=== PATIENT | male | born 2005 | race Caucasian/White ===

== ENCOUNTER 2025-02-13 20:35 | Emergency (ER) | payer OTHER, SELFPAY ==
[2025-02-13] VITALS (7 sets, daily range): BP systolic 111–130; BP diastolic 62–72; PULSE 88–105; RESP 16–20; TEMP 38.9–39.6; O2SAT 95–99; BMI 28.2
--- NOTE | 2025-02-13 21:06 | CRLHL7_ITS ---
For Patients: As a result of the Cures Act, medical imaging exams and procedure reports are released immediately into your electronic medical record. You may view this report before your referring provider. If you have questions, please contact your health care provider. INDICATION: Fever TECHNIQUE: Chest radiograph 2 views COMPARISON: None FINDINGS: The sensitivity and specificity of the exam are moderately limited by the patient`s body habitus. Mediastinum: The mediastinum is normal in appearance. The heart silhouette is normal in size and morphology. Lung: Both lungs are unremarkable in appearance with small lung volumes. No sign of pleural effusion seen. No pneumothorax is identified. Bone and Soft tissue: Unremarkable for age. IMPRESSION: 1. No acute cardiopulmonary disease is seen. Dictated by: Tru Jaramillo MD @ 02/13/2025 21:43:49 (Electronically Signed)
--- NOTE | 2025-02-13 21:06 | ED.GENADULT ---
HPI - General Adult General Date Seen: 02/13/25 Chief complaint: Fever Stated complaint: Fever, Seizures Time Seen by Provider: 02/13/25 20:48 History of Present Illness HPI narrative: Patient is a 19-year-old generally healthy young man with a history of ITP who presents with sudden onset of fever and shaking chills with associated near-syncope, here with his girlfriend for evaluation. They were concerned about possible seizure because of this shaking, but it does not sound like he had seizure activity as he did not have loss of consciousness. He said he could hear his girlfriend talking to him but he was shaking really hard and he said he just felt so poorly he did not even feel like he could respond. He does not have a seizure history. He has developed symptoms of headache, neck pain, sore throat, cough, nausea, he had fleeting left-sided chest pain, this is resolved, body aches, weakness. He has not had any ill contacts or travel. He vapes and smokes cigarettes, drinks occasionally, has history of mushroom use but none for the past year, denies any history of IV drug use. Related Data Allergies Allergy/AdvReac Type Severity Reaction Status Date / Time No Known Drug Allergies Allergy Verified 02/13/25 21:14 Review of Systems Status of ROS: Reports: 10 or more systems reviewed and unremarkable except as noted in History and below [facility] Social History Non-prescribed substance use: marijuana (any form) Exam Narrative: Exam Narrative: Vital signs reviewed In general, alert, nontoxic young man. Head: Normocephalic, atraumatic. Eyes: Sclera clear. Pupils equal and reactive. ENT: Mucous membranes moist. Throat normal. Neck: He does move his neck, complains of pain. Complains of tenderness in the anterior and posterior neck, no adenopathy. Heart: Regular rate and rhythm without murmur. Lungs: Clear. No increased work of breathing, crackles or wheezes. Abdomen: Soft, nondistended. Complains of mild tenderness throughout, no rebound guarding or rigidity. Extremities: Well perfused, pulses intact. No significant edema. Neurologic: Alert, conversant. Speech fluent, face symmetric. Moves all extremities equally. Nurse reported generalized weakness and requiring wheelchair to get him to the room. Skin: Warm, dry well perfused. No rash. Affect: Normal. Const: Vital Signs, click to edit/add: Vital Signs - 24 hr 02/13/25 20:41 02/13/25 21:22 02/13/25 21:42 Temperature 103.2 F H 103 F H Pulse Rate [Pulse Oximeter] Pulse Rate [Right Pulse Oximeter] 94 105 H Respiratory Rate 16 16 Blood Pressure [Le ft Arm] Blood Pressure [Ri ght Upper Arm] 120/68 130/72 Pulse Oximetry 99 95 Oxygen Delivery Me thod Room Air Room Air 02/13/25 22:20 02/13/25 22:23 02/13/25 22:36 Temperature 102.0 F H 102.0 F H 102.0 F H Pulse Rate [Pulse Oximeter] 92 Pulse Rate [Right Pulse Oximeter] Respiratory Rate 20 Blood Pressure [Le ft Arm] 130/72 Blood Pressure [Ri ght Upper Arm] Pulse Oximetry 95 Oxygen Delivery Me thod Room Air 02/13/25 22:47 Temperature Pulse Rate [Pulse Oximeter] Pulse Rate [Right Pulse Oximeter] 88 Respiratory Rate 16 Blood Pressure [Le ft Arm] Blood Pressure [Ri ght Upper Arm] 111/62 Pulse Oximetry 95 Oxygen Delivery Me thod Room Air Course Course ED Course: Patient presents with fairly sudden onset of fever and chills about an hour ago. Unclear at this time whether this represents a viral process or bacterial illness. Swabs for COVID influenza and RSV done at triage as well as as strep swab, but given his broad symptom profile, other considerations would include bacterial pneumonia and meningitis among others. Will give him some fluids, Toradol and Tylenol for fever, Zofran for nausea, reassess after labs and medications. He is feeling better after medications. He tells me after initial evaluation that he has chronic pain in the right side of his neck, he says he has had this for years and his mother and sisters have similar symptoms. He notes that this is a muscle spasm type pain that goes down into his right shoulder blade area as well, he takes ibuprofen for it but that does not really help anymore. He would like something for that. Otherwise, he feels improved. His labs are notable for a mildly elevated white blood cell count of 13.8, platelets are normal today, he has a left shift with 88% neutrophils. His metabolic panel is normal, his lactate is very minimally elevated at 2 but procalcitonin is entirely normal at 0.09. CRP is minimally elevated at 1.5. LFTs are normal, UA is normal aside from 2-5 red cells. Strep is negative, viral swab is negative today. I did not test for mono today given that he has only been sick for about an hour. I did do a chest x-ray, I do not see any abnormalities, this is read as negative by Radiology with some limitations secondary to body habitus. Overall, he is not severely ill-appearing. He does complain of neck pain, but it would appear that the bulk of this is and not unique to tonight. Therefore, my suspicion for meningitis is low. I do not think the risk benefit ratio is in favor of lumbar puncture tonbhavana. Discussed with him that the cause for his symptoms is not clear. There are some features of his workup that suggest this may be a bacterial process, but again as he is only been ill for a couple of hours at this point, this may not have had enough time to really present itself. I have asked him to follow up with his regular clinic in the next 24-48 hours, reviewed that if he is feeling significantly worse at any point he should return to the emergency department. Otherwise, fever control, hydration. I did give him a 0.5 mg of Ativan here for muscle spasm, will send home with some Flexeril. Blood cultures and urine culture are pending. Vital Signs Vital signs: Initial Vital Signs Temperature 103.2 F H 02/13/25 20:41 Temperature Source Oral 02/13/25 20:41 Pulse Rate 94 02/13/25 20:41 Respiratory Rate 16 02/13/25 20:41 Blood Pressure 120/68 02/13/25 20:41 Blood Pressure Mean 85 02/13/25 20:41 Blood Pressure Position Sitting 02/13/25 20:41 Pulse Oximetry 99 02/13/25 20:41 Oxygen Delivery Method Room Air 02/13/25 20:41 Vital Signs Temperature 103.2 F H 02/13/25 20:41 Pulse Rate 94 02/13/25 20:41 Respiratory Rate 16 02/13/25 20:41 Blood Pressure 120/68 02/13/25 20:41 Pulse Oximetry 99 02/13/25 20:41 Oxygen Delivery Method Room Air 02/13/25 20:41 Temperature 102.0 F H 02/13/25 22:36 Pulse Rate 88 02/13/25 22:47 Respiratory Rate 16 02/13/25 22:47 Blood Pressure 111/62 02/13/25 22:47 Pulse Oximetry 95 02/13/25 22:47 Oxygen Delivery Method Room Air 02/13/25 22:47 Medications Administered Medications: Discontinued Medications Generic Name Dose Route Start Last Admin Trade Name Freq PRN Reason Stop Dose Admin Acetaminophen 1,000 mg 02/13/25 21:03 02/13/25 21:22 Acetaminophen 500 Mg Tablet PO 02/13/25 21:04 1,000 mg ONCE ONE Administration Sodium Chloride 1,000 mls @ 1,000 mls/hr 02/13/25 21:15 02/13/25 22:36 0.9 % Sodium Chloride 1000 Ml IV 02/13/25 22:14 Infused .Q1H LADAN Infusion Ketorolac Tromethamine 15 mg 02/13/25 21:03 02/13/25 21:22 Ketorolac 15 Mg/Ml Inj IVP 02/13/25 21:04 15 mg ONCE ONE Administration Lorazepam 0.5 mg 02/13/25 22:33 02/13/25 22:45 Lorazepam 2 Mg/Ml Inj IVP 02/13/25 22:34 0.5 mg ONCE ONE Administration Ondansetron HCl 4 mg 02/13/25 21:03 02/13/25 21:22 Ondansetron 2 Mg/Ml Inj IVP 02/13/25 21:04 4 mg ONCE ONE Administration Medical Decision Making Lab Data Labs: Lab Results 02/13/25 02/13/25 02/13/25 Range/Units 20:39 21:14 21:21 WBC 13.75 H (4.50-11.00) K/uL RBC 5.83 (4.30-5.90) m/uL Hgb 16.8 (13.5-17.5) gm/dL Hct 49.2 (37.0-53.0) % MCV 84 (80-100) fL MCH 29 (26-34) pg MCHC 34 (32-36) gm/dL RDW Coeff of Sheila 12.4 (11.5-15.5) % Plt Count 211 (140-440) K/uL Neut % (Auto) 88.5 H (42.0-72.0) % Lymph % (Auto) 5.0 L (20-44) % Noble % (Auto) 5.5 (0.0-11.0) % Eos % (Auto) 0.7 (0.0-7.0) % Baso % (Auto) 0.2 (0.0-3.0) % Neut # (Auto) 12.20 H (1.7-7.0) K/uL Lymph # (Auto) 0.70 L (0.90-2.90) K/uL Noble # (Auto) 0.80 (0.00-0.90) K/UL Eos # (Auto) 0.10 (0.00-0.50) K/uL Baso # (Auto) 0.00 (0.00-0.30) K/uL Abs Immat Gran (auto) 0.00 (0.00-0.30) K/uL Imm/Tot Granulo (auto) 0.1 % Sodium 137 (135-149) mmol/L Potassium 3.8 (3.6-5.1) mmol/L Chloride 99 (96-114) mmol/L Carbon Dioxide 26 (20-32) mmol/L Anion Gap 12 (7-15) mEq/L BUN 18 (5-24) mg/dL Creatinine 1.3 (0.5-1.5) mg/dL Estimated Creat Clear 84.74 Estimated GFR 81 ml/min Glucose 105 (60-115) mg/dL Lactate 2.0 H (0.5-1.9) mmol/L Calcium 9.9 (8.4-10.6) mg/dL Total Bilirubin 1.0 (0.1-1.5) mg/dL Direct Bilirubin 0.3 (0.0-0.5) mg/dL AST 29 (12-35) U/L ALT 49 (4-50) U/L Alkaline Phosphatase 93 (40-150) U/L C-Reactive Protein 1.5 H (0.5-1.0) mg/dL Total Protein 7.9 (6.0-8.3) g/dL Albumin 5.0 (3.3-5.0) g/dL Procalcitonin 0.09 (<0.50) ng/mL Urine Color Yellow (Yellow) Urine Appearance Clear (Clear) Urine pH 7.5 (5.0-8.5) Ur Specific [place] 1.020 (1.000-1.030) Urine Protein Negative (Negative) Urine Glucose (UA) Negative (Negative) Urine Ketones Negative (Negative) Urine Blood Trace-intact A (Negative) Urine Nitrite Negative (Negative) Urine Bilirubin Negative (Negative) Urine Urobilinogen 0.2 (0.2-1.0) Ur Leukocyte Esterase Negative (Negative) Urine RBC 2-5 A (0-2) Urine WBC 0-2 (0-5) Ur Squamous Epith Cells Few (None-Few) Urine Bacteria Few A (None) SARS-CoV-2 (PCR) Negative SARS-CoV-2 (Negative) Influenza Type A (PCR) Negative PCR FLU A (Negative) Influenza Type B (PCR) Negative PCR FLU B (Negative) RSV (PCR) Negative PCR RSV (Negative) Group A Strep DNA NOT DETECTED (Not Detectd) Discharge Plan Discharge Clinical Impression: Fever Patient Disposition: Home, Self-Care Condition: Improved Instructions: Fever in Adults (ED) Additional Instructions: Cause for your fever is not clear at this time. Because you have only been sick for short period, it is possible that your illness has not quite declared itself. Your labs are somewhat nonspecific at this time, but a clear bacterial source for your fever is not evident, such as strep, pneumonia, urinary tract infection. Your viral tests are also negative today such as influenza, COVID, RSV. I would recommend that you see your primary clinic in the next 24-48 hours for recheck. If at any time you feel worse, come back to the ER. You can use ibuprofen 400 mg plus Tylenol 1000 mg 3 times daily with food for fever. I have also prescribed Flexeril for you to try for your more chronic right-sided neck muscle spasm. Follow Up/Referrals: Provider,Not a Local [Primary Care Provider] - Stand Alone Forms: [employer] Info Instructions
[2025-02-13] MEDS: 0.9 % SODIUM CHLORIDE 1000 ml 1,000 ML IV (21:19)
[2025-02-13] MEDS: ACETAMINOPHEN 500 MG TABLET 1000 MG PO (21:22)
[2025-02-13] MEDS: KETOROLAC 15 MG/ML inj IVP (21:22)
[2025-02-13] MEDS: ONDANSETRON 2 MG/ML inj 4 MG IVP (21:22)
[2025-02-13 21:25] LABS: Appearance Urine Clear (Clear); Bilirubin Urine Negative (Negative); Blood Urine Trace-intact (Negative); Color Urine Yellow (Yellow); Glucose Urine Negative (Negative); Ketones Urine Negative (Negative); Leukocyte Esterase Urine Negative (Negative); Nitrite Urine Negative (Negative); Protein Urine Negative (Negative); Urobilinogen Urine 0.2 (0.2-1.0); pH Urine 7.5 (5.0-8.5)
--- OUTSIDE RECORDS SUMMARY | 2025-02-13 21:25 | XMS_ITS | Encounter Summary ---
Author Organization [facility] Address [address] [place] [address] Care Team Providers Care Area Supervisor Name Role Phone Lupe Srinivasan D.O. Primary Care Provider [phone] Reason for Visit * Reason Comments Exposure to STD Bumps on penis on/of f x 5 months Encounter Details Date Type Department Care Team (Late st Contact Info) Description 01/07/2025 2:00 PM CDT Office Visit Department of Family Medicine, [facility], in [place], [place] [address] [place] [id number] Gold Hanley, P.A.-C. [address] [place] [address] Folliculitis (Primary Dx); Abrasion Scrotum And Testes Initial Discharge Disposition: Home or Self Care Social History Tobacco Use Types Packs/Day Years Used Date Smoking Tobacco: Every Day Cigarettes 0.3 7.3 Started: 10/27/2017 Smokeless Tobacco: Never Alcohol Use Standard Drinks/Week Comments Not Currently 4 (1 standard drink = 0.6 oz pur e alcohol) [facility] Utilities Answer Date Recorded In the past 12 months has [employer], gas, oil, or water [employer] threatened to shut off services in your home? No 01/06/2025 Overall Financial Resource Strain (CARDIA) Answe r Date Recorded How hard is it for you to pa y for the very basics like food, housing, medical care, and heating? Not very hard 08/10/2023 PHQ-2 Answer Date Recorded PHQ-2 Score 4 01/06/2025 Exercise Vital Sign Answer Date Recorde d On average, how many days pe r week do you engage in moderate to strenuous exercise (like a brisk walk)? 4 days 01/06/2025 On average, how many minutes do you engage in exercise at this level? 30 min 01/06/2025 Hunger Vital Sign Answer Date Recorded Within the past 12 months, y ou worried that your food would run out before you got the money to buy more. Sometimes true Within the past 12 months, t he food you bought just didn't last and you didn't have money to get more. Sometimes true PRAPARE - Transportation Answer Date Re corded In the past 12 months, has l ack of transportation kept you from medical appointments or from getting medications? Yes 12/25 In the past 12 months, has l ack of transportation kept you from meetings, work, or from getting things needed for daily living? No 01/06/2025 Depression Answer Date Recor ded PHQ-9 Total Score (max 27) 20 01/06 Nutrition Answer Date Recorded On average, how many serving s of fruits and vegetables do you eat per day (serving size is equal to 1 cup or approximately the size of a tennis ball)? 0-2 01/06/2025 Dental Answer Date Recorded Dental: Regular Dentist No 08/10/20 Employment Answer Date Recorded Employment status Unemployed/not in th e paid workforce but seeking employment 01/06/2025 Housing Stability Answer Date Recorded What is your living situation today? 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 - 01/07/2025 2:00 PM CDT CHIEF COMPLAINT/REASON FOR VISIT: STI Screening and STI testing HISTORY OF PRESENT ILLNESS: Patient is 19-year-old male who presented to the same-day clinic today with a chief complaint of small bumps located around the pubic area. After noticing these small bumps, patient shaved pubic hairand resulted razor andre. He has been in a committed relationship in the past 6 months and his partner has no known STDs. The skin bumps more consistent with folliculitis, patient states that it has been ongoing for 5 months and not causing any symptoms, specifically, no pain or itching. ALLERGIES: Reviewed and reconciled in the EMR under the allergies tab of today???s date. MEDICATIONS: Reviewed and reconciled in the EMR under the medications tab of today???s date. BP 131/85 (BP Location: Left arm, Patient Position: Sitting, Cuff Size: Regular) Pulse 72 Temp 36.6 ??C (Temporal) Wt 81.8 kg BMI 28.98 kg/m?? PHYSICAL EXAM: General: alert and oriented, no acute distress Lymph nodes: no adenopathy. Heart: regular rate and rhythm without abnormal sounds. Lungs: clear to auscultation bilaterally. Abdomen: soft, flat; no masses, tenderness or organomegaly. : Razor andre noted with possible folliculitis around the pubis area Skin: negative for rash where examined. IMPRESSION/REPORT/PLAN: # razor burn # Possible folliculitis # Depression He does not have any symptoms indicating STD. He is in a committed relationship and his partner hasno reported STDs. Given these findings, we mutually agreed not to proceed with any STD testing. Regarding the razor burn and folliculitis of the pubic area, recommended triple antibiotics to be applied 2 to 3 times a day until it resolves. He also mentioned some chronic musculoskeletal pain in his neck and shoulders. Recommended to take scheduled a ibuprofen (400 mg) with meals for 1-2 weeks for treatment. Last but not least, he scored 20 points on PHQ-9 forearm, which indicated severe depression. Discussed with him today, 1st he acknowledged that he has no suicidal ideations. Secondly, he believes hispressure is a situational. Trails of antidepressant was discussed, the patient deferred Anticipatory guidance was reviewed. Information was provided and reviewed with the patient including indications that would indicate a need for follow up. Patient indicates understanding of our plan and agrees. documented in this encounter Plan of Treatment Not on file documented as of this encounter Visit Diagnoses Diagnosis Folliculitis- Primary Abrasion Scrotum And Testes Initial documented in this encounter Additional Health Concerns Assessment Noted Time PHQ-9 Depression Total Score: 20 025 7:55 PM CDT documented as of this encounter Care Teams Area Supervisor Relationship Specialty Start Date End Date Lupe Srinivasan, DJujuO. [address] [place] [id number] PCP - General Family Medicine 01/06/25 documented as of this encounter
--- OUTSIDE RECORDS SUMMARY | 2025-02-13 21:25 | XMS_ITS | Encounter Summary ---
Author Organization [facility] Address [address] [place] [address] Care Team Providers Care Rag Baler Name Role Phone Lupe Srinivasan D.O. Primary Care Provider [phone]- [phone] Reason for Visit * Reason Onset Date Comments STI Screening 01/06/2025 Exposure to STD 01/06/2025 Encounter Details Date Type Department Care Team (Late st Contact Info) Description 01/06/2025 Nurse Triage Department of Family Medicine, [facility], in [place], [place] [address] [place] [address] Head, Shantell Fragoso., R.N. 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 - 01/06/2025 2:39 PM CDT Chief Complaint / Reason for Call Patient is a 19 y.o. male calling regarding STI Screening and STI testing. Assessment Concern: Pain that radiates from the neck to the shoulder, and at times right eye pain and headaches as well. This is intermittent. When placing pressure on a specific spot near the spine the pressure resolves from the eye and neck, but the shoulder pain persists. Anderson is requesting STD testing. He reports small bumps located on the genitals, intermittently over the past 4 months. Present for: Neck pain- years in the past one week Home cares tried: Ibuprofen, Tylenol, stretches Calling to request: appointment The recommended disposition is See a health care provider within 3 days. Patient was scheduled for an acute appointment via [employer] Scheduling. Verification of patient's scheduled appointment day, date, time, and location was completed. Reason for Disposition [1] MODERATE neck pain (e.g., interferes with normal activities) AND [2] present > 3 days Patient is worried they have a sexually transmitted infection (STI) Protocols used: Neck Pain or [id number], STI [id number] Care Advice Patient/Caregiver understands and will follow care advice?: Yes, able to teach back Neck Pain or [id number] Nurse Marni Markham Jan 06, 2025 02:48 PM Care Advice SEE PCP WITHIN 3 DAYS: * You need to be seen within 2 or 3 days. PAIN MEDICINES: * For pain relief, you can take either acetaminophen, ibuprofen CALL BACK IF: * You become worse documented in this encounter Plan of Treatment Not on file documented as of this encounter Visit Diagnoses Not on filedocumented in this encounter Additional Health Concerns Assessment Noted Time PHQ-9 Depression Total Score: 20 025 7:55 PM CDT documented as of this encounter Care Teams Rag Baler Relationship Specialty Start Date End Date Lupe Srinivasan D.O. [address] [place] [address] PCP - General Family Medicine 01/06/25 documented as of this encounter
--- OUTSIDE RECORDS SUMMARY | 2025-02-13 21:25 | XMS_ITS | Continuity of Care Document ---
Author Organization [facility] ic Address [address] [address] Phone Care Team Providers Care Collection Specialist Name Role Phone Guru SCHUMACHER, Tennille Unavailable Unavail able Allergies, Adverse Reactions, Alerts Substance Reaction Status Criticality No Known Allergies Active No Inform ation Medications Medication Instructions Dosage Effective Dates (start - stop) Status Comments RIZATRIPTAN (unknown strength) Not Available - Active Procedures Procedure Date Single Vision Dispense Single Vision Dispense Refraction EYE EXAM NEW PATIENT Advance Directives Directive Yes / No Effective Date File Name No Information Encounters Encounter Description Practice Location Reason(s) For Visit Diagnoses Date Provider Providers Copied on Encounter [facility], [address] [place], [id number], [place] tel:[phone] [facility] No Information [address] [place], [address]. tel:[phone] Referring Provider: Tennille Roach, [address] [place], [address]. tel:[phone] [facility], [address] [place], [id number], [place] tel:[phone] [facility] No Information [address] [place], [address]. tel:[phone] Referring Provider: Tennille Roach, [address] [place], [address]. tel:[phone] [facility], [address] [place], [id number], tel:[phone] [facility] blurry vision (chief complaint) Myopia, right eyeRegular astigmatism, left eyeHeadache [address] [place], [address]. tel:[phone] Referring Provider: Tennille Roach, [address] [place], [address]. tel:[phone] Family History Family Member Type Diagnosis Age At Onset No Information Payers Payer name Insurance type Covered constitution party ID Hafsa grajeda(s) [facility] [id number] Social History Type Description Quantity Date Captured Comments Sex Male Smoking Status No Information Chief Complaint And Reason For Visit No Information Reason For Referral Reason For Referral No Information History Of Present Illness Encounter Date Complaint History Of Prese nt Illness blurry vision The 15 year 10 m onth old female presents for evaluation of blurry vision. Pt. complains of constant blurry vision OU that makes things hard to read and he also gets HAs while reading for the past 6 months. Pt. has never wore glasses before. No eye pain OU. Screening for COVID-19: Patient reports no close contact with known COVID-19. Patient denies any COVID-19 symptoms or recent travel. Functional Status Date Functional Assessmen t No Information Instructions Date Instruction Additional Infor mation Impression/Plan Related to Heada greg Impression/Plan Related to Regul ar astigmatism, left eye Impression/Plan Related to Myopi a, right eye Assessments Type Assessment Date No Information Patient Care Teams Name Effective Dates (start - stop) Status Members No Information
--- OUTSIDE RECORDS SUMMARY | 2025-02-13 21:25 | XMS_ITS | Clinical Summary ---
Author Organization [facility] Address [address] [place] [address] Care Team Providers Care Account Development Specialist Name Role Phone Lupe Srinivasan D.O. Primary Care Provider [phone] Source Comments Patient records contain information from all sites at [facility]. For routine questions regarding patient records, call [phone] during business hours, M-F 8:00 AM - 5:00 PM Central Time. Record requests for emergency care only can be directed to [phone] at any time.[facility] Allergies No known active allergies Medications * This document contains information received from the source organization and may not represent a complete record from that organization. No known medications Active Problems Problem Noted Date Diagnosed Date Migraine Headache 02/08/2021 Acne Vulgaris 02/08/2021 Attention Deficit With Hyperactivity Disorder Overview (03/18/2017): ADHD. 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 Folliculitis (Primary Dx); Abrasion Scrotum And Testes Initial Discharge Disposition: Home or Self Care 01/06/2025 Nurse Triage Department of [facility], [facility], in [place], [place] [address] [place] [address] Head, Shahid Fragoso, R.N. STI Screening; Exposure to STD 12/06/2024 Nurse Triage Department of [facility], [facility], in [place], [place] [address] [place] [address] Leida Danielle, R.N. STI Screening from Last 3 Months Immunizations Immunization Administration Dates Next Due 4vHPV (discontinued) 07/22/2017 9vHPV 03/10/2018 DTaP (Infanrix, [employer]) 04/18/2010,,05/31/2005,2004,2004 HepA Pediatric/Adolescent 06/21/2009,01/01/2008 Hib-HepB 05/31/2005,02/02/2005,2004 IPV 04/18/2010, 6,08/07/2005,2004,02/02/2005 Influenza, Unspecified 09/30/2014,2012,08/18/2012,2010 MCV4 (Menactra)(Discontinued) 02/08/2021, 017 MMR 04/18/2010,01/20/2006 MenB (BEXSERO) 11/08/2022,02/08/2021 PCV7 (discontinued) 01/20/2006, 5,05/31/2005,2004 SARS-COV-2 (COVID-19) - PFIZ ER (Discontinued)(12 years or older) 09/18/2021 Tdap 11/29/2022,04/14/2017 DEE 04/18/2010,01/20/2006 influenza vaccine quad (FLUZONE/FLUARIX) (6 months and older)(PF) 08/19/2023 Family History Medical History Relation Name Comments Breast cancer Maternal Grandmother fareed ADD / ADHD Mother Breast cancer Mother Migraines Paternal Grandfather Brittany Douglas ADD / ADHD Sister Clementine Relation Name Status Comments Maternal Grandmother fareed Mother Paternal Grandfather Brittany Spring Social History Tobacco Use Types Packs/Day Years Used Date Smoking Tobacco: Every Day Cigarettes 0.3 7.3 Started: 10/27/2017 Smokeless Tobacco: Never Tobacco Cessation:Ready to Q uit: Not Asked Alcohol Use Standard Drinks/Week Comments Not Currently 4 (1 standard drink = 0.6 oz pur e alcohol) [facility] Utilities Answer Date Recorded In the past 12 months has th e [employer], gas, oil, or water [employer] threatened to shut off services in your [...] PM CDT Legal Sex Male 8:16 AM INSURANCE INVESTIGATOR Gender Identity Male 01/16/2021 10:10 AM CDT Sexual Orientation Straight 01/16/2021 10 :10 AM CDT Last Filed Vital Signs Vital Sign Reading Time Taken Comments Blood Pressure 131/85 01/07/2025 1:52 PM CDT Pulse 72 01/07/2025 1:52 PM CDT Temperature 36.6 C (97.9 F) 01/07/2025 1:52 PM CDT Respiratory Rate 19 09/22/2024 7:22 PM INSURANCE INVESTIGATOR Oxygen Saturation 99% 09/22/2024 8:44 PM INSURANCE INVESTIGATOR Inhaled Oxygen Concentration - - Weight 81.8 kg (180 lb 5.4 oz) 01/07/2025 1:52 P M CDT Height 168 cm (5' 6.14) 08/19/2023 10:13 AM CDT Body Mass Index 28.98 08/19/2023 10:13 AM CDT Plan of Treatment Health Maintenance Due Date Last Done Comments Tobacco Cessation counseling 2004 1 week Well Child Check-Up 2004 1 month Well Child Check-Up 2004 2 month Well Child Check-Up 01/18/2005 4 month Well Child Check-Up 03/02/2005 9 month Well Child Check-Up 08/02/2005 15 month Well Child Check-Up 01/31/2006 18 month Well Child Check-Up 05/02/2006 2 year Well Child Check-Up 11/02/2006 30 month Well Child Check-Up 05/02/2007 3 year Well Child Check-Up 11/02/2007 Well Child Check-Up Complete d in Past Year 11/02/2007 5 year Well Child Check-Up 11/02/2009 6 year Well Child Check-Up 11/02/2010 7 year Well Child Check-Up 11/02/2011 8 year Well Child Check-Up 11/02/2012 10 year Well Child Check-Up 11/02/2014 12 year Well Child Check-Up 11/02/2016 13 year Well Child Check-Up 11/02/2018 16 year Well Child Check-Up 11/02/2021 19 year Well Child Check-Up 11/02/2023 Pneumococcal vaccine (0-49 y ears) (1 of 2 - PCV) 2023 01/20/2006, 08/07/2005, 05/31/2005, Additional history exists COVID-19 Vaccine (3 - 2023-2 5 season) 2024 09/18/2021, 07/06/2021 Influenza Vaccine (#1) 2024 , 09/30/2014, 09/13/2013, Additional history exists TB Screening during Well Chi ld Visit 08/19/2024 08/19/2023 19 year Well Child Check-Up 11/02/2024 Well Child Check-Up ([facility]) 11/02/2024 Vision Screening during Well Child Visit 06/30/2027 06/30/2023 (Performed elsewhere), 01/19/2019, 03/10/2018 DTaP,Tdap,and Td Vaccines (7 - Td or Tdap) 11/29/2032 11/29/2022, 04/14/2017, 04/18/2010, Additional history exists Hepatitis B Vaccines Completed 05/31/2005, 02/02/2005, 2004 IPV Vaccines Completed 04/18/2010, 04/27, 08/07/2005, Additional history exists Varicella Vaccines Completed 04/18/2010, 01/20/2006 12 year Well Child Check-Up Completed 03/10/2018 HPV Vaccines Completed 03/10/2018, 07/22/2017 14 year Well Child Check-Up Completed 03/24/2020 15 year Well Child Check-Up Completed 02/08/2021 Meningococcal Vaccine Completed 02/08/2021, 017 18 year Well Child Check-Up Completed 11/08/2022 HIV Screening Completed 11/08/2022 MenB Vaccine Completed 11/08/2022, 02/08/2021 Hepatitis C Screening Completed 08/19/2023 Depression Screening (Annual PHQ-2) Completed 01/06/2025 Procedures Procedure Name Priority Date/Time Associated Diagnosis Comments HCV AB SCRN W/REFLEX TO HCV PCR, S Routine 08/19/2023 11:26 AM CDT Hepatitis HIV-1/-2 AG AND AB SCREEN, PLASMA Routine 11/08/2022 10:45 AM INSURANCE INVESTIGATOR Behavior Sexual High Risk Heterosexual from Last 3 Months or Most Recently Relevant to Health Maintenance Results * HCV Ab Scrn w/Reflex to HCV PCR, Serum (08/19/2023 11:26 AM CDT) HCV Ab Screen, S Negative Negative 08/19/20 3:57 PM CDT [facility] Comment: Biotin has been identified by the final inspector and tester as a potential interfering substance. Higher concentrations of biotin may be found in multivitamins, hair/nail supplements, and workout supplements. If the result does not match clinical observations, repeat testing after patient refrains from the use of supplements for at least 12 hours. Blood (Blood, Venous) 08/19/2023 11:26 AM CDT 08/19/2023 3:57 PM CDT Narrative [facility] - 08/19/2023 3:57 PM CDT Specimen Information: Specimen ID: [id number] Specimen Type: Blood Specimen Collection Start Date: 08/19/2023 11:26 AM Specimen Received Date: 08/19/2023 3:57 PM Specimen ID: [id number] Specimen Type: Blood Specimen Collection Start Date: 08/19/2023 11:26 AM Specimen Received Date: 08/19/2023 2:47 PM us Ellie Mcpherson D.O. LAB MICROBIOLOGY - BLOOD ORDER THALIA Final Result [facility] [address] [place] [address], [place] [facility] in [place] [address] [place] [address] * HIV-1/-2 Ag and Ab Screen, Plasma (11/08/2022 10:45 AM INSURANCE INVESTIGATOR) HIV Ag/Ab Screen, P Negative Negative 11/08/2022 7:31 PM INSURANCE INVESTIGATOR [facility] Comment: Negative result does not rule out HIV infection. If exposure to HIV infection occurred <14 days ago, contact the laboratory to request addition of HIV-1 RNA detection / quantification test. HIV-1 p24 Ag Screen, P Negative Negative 11/08/2022 7:31 PM INSURANCE INVESTIGATOR [facility] Comment: Negative result does not rule out HIV infection. If exposure to HIV infection occurred <14 days ago, contact the laboratory to request addition of HIV-1 RNA detection / quantification test. HIV-1 Ab Screen, P Negative Negative 2022 7:31 PM INSURANCE INVESTIGATOR [facility] Comment: Negative result does not rule out HIV infection. If exposure to HIV infection occurred <14 days ago, contact the laboratory to request addition of HIV-1 RNA detection / quantification test. HIV-2 Ab Screen, P Negative Negative 2022 7:31 PM INSURANCE INVESTIGATOR [facility] Comment: Negative result does not rule out HIV infection. If exposure to HIV infection occurred <14 days ago, contact the laboratory to request addition of HIV-1 RNA detection / quantification test. Blood (Blood, Venous) 11/08/2022 10:45 AM INSURANCE INVESTIGATOR 11/08/2022 6:15 PM INSURANCE INVESTIGATOR us Erinn Vidal M.D. LAB MICROBIOLOGY - BLOOD ORD ERABLES Final Result [facility] [address] [place] [id number], [place] [facility] [place] [address] [place] [id number] from Last 3 Months or Most Recently Relevant to Health Maintenance Insurance [facility] [address] [place] [id number] [facility] [address] [place] [id number] Care Teams Account Development Specialist Relationship Specialty Start Date End Date Lupe Srinivasan, SageO. [address] [place] [id number] PCP - General Family Medicine 01/06/25
[2025-02-13 21:29] LABS: Basophils Percent Auto 0.2 % (0.0-3.0); Eosinophils Percent Auto 0.7 % (0.0-7.0); Hematocrit 49.2 % (37.0-53.0); Hemoglobin* 16.8 gm/dL (13.5-17.5); Immature Granulocytes Pct Auto 0.1 %; Mean Corpuscular HGB Conc 34 gm/dL (32-36); Mean Corpuscular Hemoglobin 29 pg (26-34); Mean Corpuscular Volume 84 fL (80-100); Monocytes Percent Auto 5.5 % (0.0-11.0); Neutrophils Percent Auto 88.5 % (42.0-72.0); Platelet Count* 211 K/uL (140-440); RDW Coefficient of Variation % 12.4 % (11.5-15.5); Red Blood Count 5.83 m/uL (4.30-5.90); White Blood Count* 13.75 K/uL (4.50-11.00)
[2025-02-13 21:30] LABS: Slide Review Reflex No
[2025-02-13 21:33] LABS: Bacteria Urine Few; Squamous Epithelial Cell Urine Few (None-Few); WBC Urine 0-2 (0-5)
[2025-02-13 21:43] LABS: Chloride* 99 mmol/L (96-114); Potassium* 3.8 mmol/L (3.6-5.1); Sodium* 137 mmol/L (135-149)
[2025-02-13 21:44] LABS: Strep A DNA Probe* NOT DETECTED (Not Detectd)
[2025-02-13 21:45] LABS: Blood Urea Nitrogen* 18 mg/dL (5-24); Creatinine* 1.3 mg/dL (0.5-1.5); Est. Creatinine Clearance* 84.74; Estimated Glomerular Filt Rate 81 ml/min
[2025-02-13 21:46] LABS: Alanine Aminotransferase* 49 U/L (4-50); Alkaline Phosphatase* 93 U/L (40-150); Anion Gap 12 mEq/L (7-15); Aspartate Amino Transferase* 29 U/L (12-35); Bilirubin Direct* 0.3 mg/dL (0.0-0.5); Calcium* 9.9 mg/dL (8.4-10.6); Carbon Dioxide* 26 mmol/L (20-32); Glucose* 105 mg/dL (60-115); Total Protein* 7.9 g/dL (6.0-8.3)
[2025-02-13 21:49] LABS: C Reactive Protein* 1.5 mg/dL (0.5-1.0)
[2025-02-13 21:57] LABS: PCR FLU A Negative PCR FLU A (Negative); PCR FLU B Negative PCR FLU B (Negative); PCR RSV Negative PCR RSV (Negative); SARS PCR* Negative SARS-CoV-2 (Negative)
[2025-02-13 22:03] LABS: Procalcitonin* 0.09 ng/mL (<0.50)
[2025-02-13] MEDS: LORazepam 2 MG/ML inj 0.5 MG IVP (22:45)
== END 2025-02-13 23:31 | disposition home or self-care (01) ==
PROVIDERS: Emergency Provider Emergency Medicine
DX: R50.9 Fever, unspecified (principal); M62.838 Other muscle spasm
CPT/HCPCS: 36415; 71046; 80048; 80076; 81001; 83605; 84145; 85025; 86140; 87040; 87086; 87631; 87651; 96361; 96374; 96375; 99284; 99285; A9270; J1885; J2060; J2405; J7030